=== PATIENT | male | born 1975 | race Caucasian/White ===

== ENCOUNTER 2018-10-23 20:35 | Emergency (ER) | payer OTHER ==
[~2018-10-23] VITALS: Ht 162.6 cm; Wt 50.7 kg
[2018-10-23 20:41] VITALS: BP 114/70
[2018-10-23 21:07] LABS: CULTURE INDICATED? YES; MICROSCOPIC INDICATED
[2018-10-23] MEDS ORDERED: AZITHROMYCIN 250 MG TABLET PO STA (22:02)
[2018-10-23] MEDS ORDERED: CEFTRIAXONE 250 MG ONE (22:28)
[2018-10-23] MEDS ORDERED: AZITHROMYCIN 500 MG TABLET ONE (22:28)
[2018-10-23] MEDS ORDERED: CEFTRIAXONE 250 MG IM ONE (22:30)
== END 2018-10-23 22:43 | disposition home or self-care (01) ==
LOC: ED 22:37
DX: A64 Unspecified sexually transmitted disease (principal); N39.0 Urinary tract infection, site not specified; N34.2 Other urethritis; Z21 Asymptomatic human immunodeficiency virus [HIV] infection status
CPT/HCPCS: 81001; 87086; 87491; 87591; 96372; 99283; J0696